=== PATIENT | female | born 1995 | race Two or more races ===

== ENCOUNTER 2023-09-23 11:22 | Outpatient (CLI) | payer OTHER | END 2023-09-23 11:35 | disposition home or self-care (01) | LOC: SONOGRAMA 11:22 | PROVIDERS: ATTEND Obstetrics & Gynecology | DX: N93.8 Other specified abnormal uterine and vaginal bleeding (principal); R10.2 Pelvic and perineal pain ==

== ENCOUNTER 2024-02-10 13:57 | Emergency (ER) | payer OTHER ==
[~2024-02-10] VITALS: Ht 162.6 cm; Wt 55.3 kg
[2024-02-10] MEDS ORDERED: CETIRIZINE HCL 5 MG/5 ML ML PO ONE (14:45)
[2024-02-10] MEDS ORDERED: GUAIFENESIN/DEXTROMETHORPHAN 10ML BLIST.PACK PO ONE (14:45)
[2024-02-10 15:17] LABS: HEMATOCRIT 38.1 % (36.0-45.00); HEMOGLOBIN 13.2 g/dL (12.0-15.00); MEAN CORPUSCULAR HEMOGLOBIN 30.9 pg (27.00-32.0); MEAN CORPUSCULAR HGB CONC 34.7 g/dl (32.0-36.0); PLATELET COUNT 241 K/uL (150-450); RED BLOOD COUNT 4.28 M/uL (4.00-6.00); RED CELL DISTRIBUTION WIDTH 13.1 % (11.5-14.5)
[2024-02-10] MEDS ORDERED: AYR SALINE NASA22 ML NASAL (17:31)
[2024-02-10] MEDS ORDERED: ZYRTEC10 MG PO (17:31)
[2024-02-10] MEDS ORDERED: FLONASE16 GM NASAL (17:31)
[2024-02-10] MEDS ORDERED: AMOX-CLAV 875-1 EACH PO (17:31)
== END 2024-02-10 18:44 ==
LOC: ER 13:59
PROVIDERS: General Practice
DX: J32.9 Chronic sinusitis, unspecified (principal); Z98.890 Other specified postprocedural states; Z20.822 Contact with and (suspected) exposure to COVID-19